=== PATIENT | female | born 1955 | race Caucasian/White ===

== ENCOUNTER → 2019-01-20 | Outpatient (CLI) | payer MEDICARE, OTHER ==
[2015-09-19 11:05] VITALS: BP 148/82
[~2019-01-20] MED LIST: ACET325T16 PO; ACYC15OI TP; ALBU2.5V5 NEB; AMOX1TAB11 PO; APIX5TAB PO; ASPI-612 PO; ATOR40TA59 PO; DILT300C23 PO; DULO30CA2 PO; ERGO500027 PO; LEVO75TA5 PO; LOSA-73 PO; LOSA100T14 PO; METO-269 PO; METO50TA6 PO; PANT40TA77 PO; PRED2.5T PO
--- NOTE | 2019-01-20 13:24 | KCIC ---
Upper GI with small bowel follow-through HISTORY: Epigastric pain. 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 FINDINGS: Showcase Maker image demonstrates moderate stool in the colon. Surgical clips right upper quadrant. Mild tertiary contractions are identified in the esophagus. No fixed stricture or filling defect in the esophagus. No definite mucosal abnormality of the esophagus. Prompt emptying of barium from the esophagus into the postsurgical stomach. The stomach demonstrates a small and irregular morphology presumably related to multiple prior surgeries. No evidence of contrast leakage. Contrast promptly empties into the small bowel. No gastroesophageal reflux is identified during the exam. Contrast readily traverses small bowel loops entering the right colon within 30 minutes. Manual fluoroscopy of all 4 quadrants of the abdomen demonstrates no tethered or deformed small bowel loop. Fold pattern appears within normal limits. Terminal ileum is visualized. IMPRESSION: 1. Postsurgical deformity of the stomach. 2. No evidence of fixed stricture or obstruction to contrast flow through the esophagus, stomach or small bowel. Mild tertiary contractions are noted in the esophagus. 3. If gastric leak or other acute process becomes of clinical concern, recommend CT of the abdomen and pelvis. Electronically signed by: Cain Ge MD (01/20/2019 1:21 PM) [facility]-KCIC2
== END | disposition home or self-care (01) ==
LOC: KCIC 09:33
PROVIDERS: ATTEND Family Medicine
DX: K22.8 Other specified diseases of esophagus (principal)
CPT/HCPCS: 74245

== ENCOUNTER → 2020-05-03 | Outpatient (CLI) | payer MEDICARE, OTHER ==
[2015-09-19 11:05] VITALS: BP 148/82
[~2020-05-03] MED LIST changes: +ACET-2061 PO; -ACET325T16 PO; -ASPI-612 PO; +ASPI-886 PO
--- NOTE | 2020-05-03 14:51 | KCIC ---
EXAM: Head CT without contrast. HISTORY: Fall. TECHNIQUE: Computed tomographic images of the head were obtained without contrast. *One or more of the following individualized dose reduction techniques were utilized for this examina tion: 1. Automated exposure control. 2. Adjustment of the mA and/or kV according to patient size. 3. Use of iterative reconstruction technique. COMPARISON: Pain. FINDINGS: There is no acute or subacute extra-axial or intraparenchymal hemorrhage. There is no mass effect or midline shift. There is no hydrocephalus. There are areas of decreased attenuation within the cerebral white matter, nonspecific and likely rel ated to chronic small vessel disease. The visualized portions of the orbits, paranasal sinuses and mastoid air cells are unremarkable. No s uspicious calvarial lesion is seen. IMPRESSION: No acute intracranial findings. Electronically signed by: Twyla Perez MD (05/03/2020 2:49 PM) [id number]
== END ==
LOC: KCIC CT 13:33
PROVIDERS: ATTEND Family Medicine
DX: S09.90XS Unspecified injury of head, sequela (principal); W19.XXXS Unspecified fall, sequela
CPT/HCPCS: 70450

== ENCOUNTER 2020-05-05 23:48 | Emergency (ER) | payer MEDICARE, OTHER ==
[~2020-05-05] VITALS: Ht 167.6 cm; Wt 77.3 kg
[2020-05-06 00:18] LABS: BASO # 0.1 x10^3/uL (0.0-0.2); BASO % 1 % (0-3); EOS # 0.1 x10^3/uL (0.0-0.7); EOS % 1 % (0-3); HEMATOCRIT 37.8 % (36.0-47.0); HEMOGLOBIN 12.8 g/dL (12.0-15.5); LYMPH # 5.1 x10^3/uL (1.0-4.8); LYMPH % 47 % (24-48); MEAN CORPUSCULAR HEMOGLOBIN 35 pg (25-35); MEAN CORPUSCULAR HGB CONC 34 g/dL (31-37); MEAN CORPUSCULAR VOLUME 104 fL (79-100); MONO # 0.7 x10^3/uL (0.0-1.1); MONO % 7 % (0-9); NEUT # 4.9 x10^3/uL (1.8-7.7); NEUT % 45 % (31-73); PLATELET COUNT 348 x10^3/uL (140-400); RED BLOOD COUNT 3.62 x10^6/uL (3.50-5.40); RED CELL DISTRIBUTION WIDTH 13.7 % (11.5-14.5); WHITE BLOOD COUNT 10.8 x10^3/uL (4.0-11.0)
--- NOTE | 2020-05-06 00:19 | PHYS DOC ---
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 Patient was apparently admits to drinking with her daughter having 4 beers. States that she was stepping walking down out of her stairs and stepped and fell backward striking the back of her head against a concrete steps. Noted try to stop her self with her left upper extremity. Noted lacerations to the left forearm. Denies any loss of consciousness. Review of Systems Review of Systems Constitutional: Denies fever or chills [] Eyes: Denies change in visual acuity, redness, or eye pain [] HENT: Denies nasal congestion or sore throat [] Respiratory: Denies cough or shortness of breath [] Cardiovascular: No additional information not addressed in HPI [] GI: Denies abdominal pain, nausea, vomiting, bloody stools or diarrhea [] : Denies dysuria or hematuria [] Musculoskeletal: Denies back pain or joint pain [] Integument: Denies rash or skin lesions [] Neurologic: Denies headache, focal weakness or sensory changes [] Endocrine: Denies polyuria or polydipsia [] All other systems were reviewed and found to be within normal limits, except as documented in this note. Current Medications Current Medications Current Medications Medications (Trade) Dose Ordered Sig/Regla Start Time Stop Time Status Last Admin Dose Admin Acetaminophen (Tylenol) 1,000 mg 1X ONCE 05/06/20 01:30 05/06/20 01:32 DC 05/06/20 01:27 1,000 MG Ibuprofen (Motrin) 800 mg 1X ONCE 05/06/20 01:15 05/06/20 01:16 DC 05/06/20 01:27 800 MG Allergies Allergies Allergies Coded Allergies Type Severity Reaction Last Updated Verified bromide salts Allergy Intermediate 08/05/13 Yes codeine Allergy Intermediate 09/17/15 Yes levofloxacin Allergy Intermediate 08/05/13 Yes morphine Allergy Intermediate 09/17/15 Yes Physical Exam Physical Exam Constitutional: Well developed, well nourished, no acute distress, non-toxic appearance. [] HENT: Posterior occipital scalp laceration approximately 2 cm atraumatic, bilateral external ears normal, oropharynx moist, no oral exudates, nose normal. [] Eyes: PERRLA, EOMI, conjunctiva normal, no discharge. [] Neck: Normal range of motion, no tenderness, supple, no stridor. [] Cardiovascular:Heart rate regular rhythm, no murmur [] Lungs & Thorax: Bilateral breath sounds clear to auscultation [] Abdomen: Bowel sounds normal, soft, no tenderness, no masses, no pulsatile masses. [] Skin: Multiple skin tears over the left anterior forearm Back: No tenderness, no CVA tenderness. [] Extremities: No tenderness, no cyanosis, no clubbing, ROM intact, no edema. [] Neurologic: Alert and oriented X 3, normal motor function, normal sensory function, no focal deficits noted. [] Psychologic: Affect normal, judgement normal, mood normal. [] Current Patient Data Vital Signs Vital Signs Date Time Temp Pulse Resp B/P (MAP) Pulse Ox O2 Delivery O2 Flow Rate FiO2 05/05/20 23:49 97.5 82 17 148/82 (104) 99 Room Air 97.5 Lab Values Laboratory Tests Test 05/05/20 23:55 White Blood Count 10.8 x10^3/uL (4.0-11.0) Red Blood Count 3.62 x10^6/uL (3.50-5.40) Hemoglobin 12.8 g/dL (12.0-15.5) Hematocrit 37.8 % (36.0-47.0) Mean Corpuscular Volume 104 fL (79-100) H Mean Corpuscular Hemoglobin 35 pg (25-35) Mean Corpuscular Hemoglobin Concent 34 g/dL (31-37) Red Cell Distribution Width 13.7 % (11.5-14.5) Platelet Count 348 x10^3/uL (140-400) Neutrophils (%) (Auto) 45 % (31-73) Lymphocytes (%) (Auto) 47 % (24-48) Monocytes (%) (Auto) 7 % (0-9) Eosinophils (%) (Auto) 1 % (0-3) Basophils (%) (Auto) 1 % (0-3) Neutrophils # (Auto) 4.9 x10^3/uL (1.8-7.7) Lymphocytes # (Auto) 5.1 x10^3/uL (1.0-4.8) H Monocytes # (Auto) 0.7 x10^3/uL (0.0-1.1) Eosinophils # (Auto) 0.1 x10^3/uL (0.0-0.7) Basophils # (Auto) 0.1 x10^3/uL (0.0-0.2) Sodium Level 136 mmol/L (136-145) Potassium Level 4.0 mmol/L (3.5-5.1) Chloride Level 102 mmol/L (98-107) Carbon Dioxide Level 20 mmol/L (21-32) L Anion Gap 14 (6-14) Blood Urea Nitrogen 8 mg/dL (7-20) Creatinine 0.7 mg/dL (0.6-1.0) Estimated GFR (Cockcroft-Gault) 84.5 Glucose Level 160 mg/dL (70-99) H Calcium Level 8.7 mg/dL (8.5-10.1) Ethyl Alcohol Level 251 mg/dL (0-10) H Laboratory Tests 05/05/20 23:55 Laboratory Tests 05/05/20 23:55 EKG EKG [] Radiology/Procedures Radiology/Procedures [] Course & Med Decision Making Course & Med Decision Making Pertinent Labs and Imaging studies reviewed. (See chart for details) 65-year-old female presenting with daily injury after a fall. Will obtain a CT scan of the head and cervical spine which are clear. No significant evidence of chest or abdominal trauma. 0214 -CT scan of head and cervical spine negative for any acute fracture or significant trauma. Labs obtained and unremarkable. Posterior scalp laceration repaired with 5 coreen. Patient is accompanied by the has agreed to take her home. At this time she appears to be alert and oriented x3 I spoken with the patient and her caregivers. I explained the patient's condition, diagnoses and treatment plan based on the information available to me at this time. I have answered the patient and her caregiver's questions and addressed any concerns. The patient and her caregivers have a good understanding of patient's diagnosis, condition and treatment plan as can be expected at this point. Vital signs have been stable. Patient's condition is stable and appropriate for discharge from the emergency department. Patient will pursue further outpatient evaluation with primary care physician or other designated or consulting physician as outlined in the discharge instructions. The patient and/or caregivers are agreeable to this plan of care and follow-up instructions have been explained in detail. The patient and/or caregivers have received these instructions in written form and have expressed an understanding of the discharge instructions. The patient and/or caregivers are aware that any significant change of condition or worsening of symptoms should prompt immediate return to this or the closest emergency department or call to 911. Maicol Disclaimer Dragon Disclaimer This electronic medical record was generated, in whole or in part, using a voice recognition dictation system. Departure Departure Impression: Primary Impression: Head injury consultation Additional Impressions: Occipital scalp laceration Arm laceration Accidental fall Disposition: 01 DC HOME SELF CARE/HOMELESS Condition: GOOD Referrals: Bharat ANDREW MD (PCP) Patient Instructions: Alcohol Intoxication, Fall Prevention and Home Safety, Laceration Care, Adult Additional Instructions: EMERGENCY DEPARTMENT GENERAL DISCHARGE INSTRUCTIONS Thank you for coming to [facility] Emergency Department (ED) today and trusting us with you care. We trust that you had a positive experience in our Emergency Department. If you wish to speak to the department management, you may call the Director at [phone]. YOUR FOLLOW UP INSTRUCTIONS ARE FOLLOWS: 1. Do you have a private Doctor? If you do not have a private doctor, please ask for a resource list of physicians or clinics that may be able to assist you with follow up care. 2. The Emergency Physicain has interpreted your x-rays. The X-Ray specialist will also review them. If there is a change in the findings, you will be notified in 48 hours when at all possible. 3. A lab test or culture has been done, your results will be reviewed and you will be notified if you need a change in treatment. ADDITIONAL INSTRUCTIONS AND INFORMATION: 1. Your care today has been supervised by a physician who is specially trained in emergency care. Many problems require more than one evaluation for a complete diagnosis and treatment. We recommend that you schedule your follow up appointment as recommended to ensure complete treatment of you illness or injury. If you are unable to obtain follow up care and continue to have a problem, or if your condition worsens, we recommend that you return to the ED. 2. We are not able to safely determine your condition over the phone nor are we able to give sound medical advice over the phone. For these safety reasons, if you call for medical advice we will ask you to come to the ED for further evaluation. 3. If you have any questions regarding these discharge instructions please call the ED at [phone]. SAFETY INFORMATION: In the interest of safety, wellness, and injury prevention; we encourage you to wear your sealbelt, if you smoke; quite smoking, and we encourage family to use a protective helmet for bicycling and other sporting events that present an increased risk for head injury. IF YOUR SYMPTOMS WORSEN OR NEW SYMPTOMS DEVELOP, OR YOU HAVE CONCERNS ABOUT YOUR CONDITION; OR IF YOUR CONDITION WORSENS WHILE YOU ARE WAITING FOR YOUR FOLLOW UP APPOINTMENT; EITHER CONTACT YOUR PRIMARY CARE DOCTOR, THE PHYSICIAN WHOSE NAME AND NUMBER YOU WERE GIVEN, OR RETURN TO THE ED IMMEDIATELY. Laceration Repair Lac Repair Indication: occipital scalp laceration Procedure: The patient was placed in the appropriate position. The area was then copiously irrigated with sterile saline. The laceration was closed using 5 coreen. Total repaired wound length: 2 cm. Other Items: The patient tolerated the procedure well without complication. Complications: None. Problem Qualifiers LASHA DOMINGUEZ MD May 06, 2020 00:19
[2020-05-06 00:30] LABS: PROTHROMBIN TIME PATIENT 12.6 SEC (11.7-14.0)
--- NOTE | 2020-05-06 00:37 | RAD ---
PQRS Compliance Statement: One or more of the following individualized dose reduction techniques were utilized for this examinat ion: 1. Automated exposure control 2. Adjustment of the mA and/or kV according to patient size 3. Use of iterative reconstruction technique CT HEAD AND CERVICAL SPINE WITHOUT CONTRAST History: Reason: trauma, fell down stairs, hit back of head.: Comparison: CT head without contrast, 3 days ago. Procedure: Axial images are obtained of the head from the skull base through the vertex without IV co ntrast. Noncontrast helical CT of the cervical spine was performed. Axial, sagittal, and coronal rec onstructions were obtained. Findings: The ventricles and sulci are normal for the patient's age. No mass-effect, midline shift, hemorrhage or obvious acute infarction is identified. Basilar cistern s are patent. Bone windows demonstrate no significant calvarial abnormality. There is moderate left posterior scalp hematoma, minimal subcutaneous air suggests there is laceration. The visualized paranasal sinuses are clear. Mastoid air cells are well aerated. There is no evidence of acute fracture or acute malalignment of the cervical spine. There is bilateral facet hypertrophy. The left C2/C3 facet joint is mostly fused. There is endplate s purring and mild disc space narrowing of C6/C7. The vertebral body height and alignment are maintaine d. No high-grade narrowing of the central canal is appreciated. Visualized soft tissues of the neck demonstrate no significant abnormalities. The visualized lung api bernardino are clear. IMPRESSION: 1. No acute intracranial abnormality. 2. No acute fracture of the cervical spine. 3. Moderate left posterior scalp hematoma. Electronically signed by: Toni Sanon MD (05/06/2020 12:35 AM) [facility]
[2020-05-06 00:39] LABS: CALCIUM 8.7 mg/dL (8.5-10.1); CREATININE 0.7 mg/dL (0.6-1.0); GFR 84.5
[2020-05-06] MEDS ORDERED: IBUPROFEN 400 MG TABLET. PO ONE (01:15)
[2020-05-06] MEDS ORDERED: ACETAMINOPHEN 500 MG TABLET PO ONE (01:30)
[2020-05-06 01:43] LABS: BILIRUBIN,URINE NEGATIVE (NEG); CLARITY,URINE CLEAR; COLOR,URINE YELLOW; NITRITE,URINE NEGATIVE (NEG); PROTEIN,URINE NEGATIVE (NEG-TRACE); UROBILINOGEN,URINE 0.2 mg/dL (0.2 mg/dL)
[2020-05-06 02:06] LABS: BARBITURATES NEG (NEG); BENZODIAZEPINES NEG (NEG); CANNABINOIDS NEG (NEG); COCAINE NEG (NEG); METHADONE NEG (NEG); OPIATES NEG (NEG); PHENCYCLIDINE NEG (NEG)
[2020-05-06 02:25] LABS: BACTERIA,URINE 0 /HPF (0-FEW)
[2020-05-06 02:33] LABS: AMPHETAMINE/METHAMPHETAMINE NEG (NEG)
[2020-05-06 03:27] VITALS: BP 100/55
== END 2020-05-06 03:36 | disposition home or self-care (01) ==
LOC: ER 23:48
DX: S01.01XA Laceration without foreign body of scalp, initial encounter (principal); S51.812A Laceration without foreign body of left forearm, initial encounter; I10 Essential (primary) hypertension; E03.9 Hypothyroidism, unspecified; K58.9 Irritable bowel syndrome, unspecified; Z87.442 Personal history of urinary calculi; Z90.89 Acquired absence of other organs; Z90.49 Acquired absence of other specified parts of digestive tract; Z90.710 Acquired absence of both cervix and uterus; W10.8XXA Fall (on) (from) other stairs and steps, initial encounter; Y93.01 Activity, walking, marching and hiking; Y92.89 Other specified places as the place of occurrence of the external cause; Y99.8 Other external cause status; Z79.899 Other long term (current) drug therapy
CPT/HCPCS: 12001; 36415; 70450; 72125; 80048; 80307; 81001; 85025; 85610; 85730; 86850; 86900; 86901; 99285; G0480

== ENCOUNTER → 2021-07-04 | Outpatient (CLI) | payer MEDICARE, OTHER ==
--- NOTE | 2021-07-05 12:21 | KCIC ---
XR CERVICAL SPINE 2-3V History: Reason: HAND WEAKNESS / Spl. Instructions: New onset of BUE weakness. / History: Technique: 3 views cervical spine. Comparison: None. Findings: Normal vertebral body height and alignment. No acute fracture. Moderate degenerative disc changes mos t prominent C6-C7. Facet arthropathy. Normal alignment C1 on C2. Impression: 1. Moderate cervical spondylosis. Electronically signed by: Armani Carranza DO (07/05/2021 10:45 AM) [id number]
--- NOTE | 2021-07-05 12:21 | KCIC ---
XR LUMBAR SPINE 4+V History: Reason: PAIN WITH EXTENSION / Spl. Instructions: LBP / History: Technique: 7 views lumbar spine. Including flexion and 6 views Comparison: CT August 07, 2023 Findings: Mild leftward curvature the thoracolumbar spine. Normal vertebral body height. No acute fracture. Mul tiple level degenerative changes most prominent L5-S1 moderate. Facet arthropathy. Calcifications pro jecting over the right renal fossa. Posterior gluteal soft tissue calcifications. Alignment is unchan ged with flexion and extension. Impression: 1. Multilevel lumbar spondylosis most prominent L5-S1. 2. Potential right nephrolithiasis. Electronically signed by: Armani Carranza DO (07/05/2021 10:44 AM) [id number]
== END ==
LOC: KCIC 16:18
PROVIDERS: ATTEND Family Medicine
DX: M47.817 Spondylosis without myelopathy or radiculopathy, lumbosacral region (principal); N20.0 Calculus of kidney; M48.8X7 Other specified spondylopathies, lumbosacral region; M43.8X5 Other specified deforming dorsopathies, thoracolumbar region; M47.812 Spondylosis without myelopathy or radiculopathy, cervical region; M48.8X2 Other specified spondylopathies, cervical region
CPT/HCPCS: 72040; 72110